=== PATIENT | female | born 1995 | race Hispanic/Latino ===

== ENCOUNTER 2022-03-09 05:42 | Emergency (ER) | payer SELFPAY ==
[~2022-03-09] VITALS: Ht 160 cm; Wt 95.3 kg
[2022-03-09] MEDS ORDERED: SODIUM CHLORIDE 0.9% 1000ML 1,000 ML IV ONE ×2 (06:00→08:15)
[2022-03-09 06:17] LABS: BASOPHILS % 0.2 % (0.0-1.0); EOSINOPHILS # (AUTO) 0.1 (0.0-0.4); EOSINOPHILS % 1.3 % (0.0-6.0); HEMATOCRIT 27.9 % (34.2-44.1); HEMOGLOBIN 8.7 g/dL (12.0-16.0); LYMPHOCYTES % 19.3 % (18.0-39.1); MEAN CORPUSCULAR HEMOGLOBIN 30.2 pg (28-32); MEAN CORPUSCULAR HGB CONC 31.2 g/dL (31-35); MEAN CORPUSCULAR VOLUME 96.9 fL (81-99); MONOCYTES # (AUTO) 0.7 (0.2-0.8); MONOCYTES % 6.8 % (4.4-11.3); NEUTROPHILS # (AUTO) 7.2 (2.1-6.9); NEUTROPHILS % 70.4 % (38.7-80.0); PLATELET COUNT 306 x10e3/uL (140-360); RED BLOOD COUNT 2.88 x10e6/uL (3.6-5.1); RED CELL DISTRIBUTION WIDTH 14.6 % (11.7-14.4)
[2022-03-09] MEDS ORDERED: ONDANSETRON HCL INJ 2MG/ML 2ML 2 MG/ML VIAL IV STA ×2 (06:33→08:41)
[2022-03-09 06:35] LABS: ALBUMIN 3.3 g/dL (3.5-5.0); ALBUMIN/GLOBULIN RATIO 0.9 (0.8-2.0); CALCIUM 8.2 mg/dL (8.4-10.2); CREATININE, SERUM 0.61 mg/dL (0.57-1.11)
[2022-03-09 06:54] LABS: INR 0.94; PROTHROMBIN TIME 13.4 seconds (11.9-14.5)
[2022-03-09] MEDS ORDERED: IOPAMIDOL 370 MG/ML 100 ML INFUS..BTL INJ ONE (06:54)
[2022-03-09 06:55] LABS: PARTIAL THROMBOPLASTIN TIME 33.8 seconds (23.8-35.5)
[2022-03-09 07:48] LABS: CLARITY,URINE SL CLOUDY (CLEAR); COLOR,URINE YELLOW (YELLOW); KETONES,URINE NEGATIVE (NEGATIVE); LEUKOCYTE ESTERASE ,URINE SMALL (NEGATIVE); NITRITE,URINE NEGATIVE (NEGATIVE); PROTEIN,URINE DIPSTICK NEGATIVE (NEGATIVE); URINE UROBILINOGEN 0.2 mg/dL (0.2 - 1)
[2022-03-09 08:24] LABS: BACTERIA,URINE MODERATE /HPF; EPITHELIAL CELLS,URINE FEW /LPF; TRICHOMONAS,URINE FEW; WBC,URINE (MAN) 21-50 /HPF (0-5)
[2022-03-09] MEDS ORDERED: CEPHALEXIN500 MG PO (11:04)
[2022-03-09] MEDS ORDERED: METRONIDAZOLE 500 MG TAB PO ONE (11:15)
[2022-03-09] MEDS ORDERED: AZITHROMYCIN 250 MG TAB PO ONE (11:15)
[2022-03-09] MEDS ORDERED: CEFTRIAXONE 500 MG VIAL IM ONE (11:15)
[2022-03-09 11:53] VITALS: BP 100/66
== END 2022-03-09 11:57 | disposition home or self-care (01) ==
LOC: ER 05:48
DX: E86.1 Hypovolemia (principal); D64.9 Anemia, unspecified; N39.0 Urinary tract infection, site not specified; R11.0 Nausea; A59.9 Trichomoniasis, unspecified; Z20.822 Contact with and (suspected) exposure to COVID-19
CPT/HCPCS: 36415; 71046; 71260; 74177; 80053; 81001; 84702; 85025; 85610; 85730; 93005; 94760; 99284; J0696; J2405; J7030; Q9967; U0002